=== PATIENT | male | born 1965 | race Caucasian/White ===

== ENCOUNTER 2016-12-26 11:08 | Emergency (ER) | payer MEDICARE, MEDICAID ==
[~2016-12-26] VITALS: Ht 170.2 cm; Wt 81.6 kg
[~2016-12-26 11:08] MED LIST: DEPAKOTE 500MG500 MG PO; LEVOTHYROXIN0.112 M1 PO; LISINOPRIL 5MG T5 MG PO; LORAZEPAM1 MG/TABLE PO; METOPROLOL25 MG PO; PRILOSEC20 MG PO; SERTRALINE 100100 MG PO; TRAZODONE 50MG50 MG PO; VITAMIN D1000 IU PO
--- NOTE | 2016-12-26 11:13 | Emergency Room Report ---
History of Present Illness Time Seen by [id number] Presenting Problem in Triage Pt arrived: Presenting Problem: Onset of symptoms date/time:/ or onset unknown for: Treatment Prior to Arrival: KENNEL MANAGER Provided by: Sepsis Risk Assessment: Temp: B/P: MAP: Pulse: Resp: Recent fever? Clinical Suspician of Infection? Mental Status: Sepsis Risk: Have you (or family members/close friends) recently traveled outside the [place]? If Yes, where/when: Have you had exposure to infectious disease within the past month? TB? Other? Specify: Comment The patient is brought in by ambulance as a TRAUMA ALERT. He says that he was on a brick wall and fell off. Estimated fall is 4-5 feet. He complains of RIGHT sided abdominal pain, LEFT wrist pain, and RIGHT ankle pain. RIGHT ankle was unstable upon EMS arrival and has been splinted. The patient denies loss of consciousness or neck pain. He feels anxious and thinks she might be short of breath due to that. He initially had some back pain, which he says is now gone. ALLERGIES Coded Allergies: No Known Allergies (01/14/16) Home Medications Reported Medications Lorazepam (Lorazepam 1MG) 1 MG PO QIDP PRN NERVES Divalproex Sodium (Depakote) 500 MG PO QHS Levothyroxine Sodium (Levothyroxine 0.112MG) 0.112 MG PO DAILY LISINOPRIL (Lisinopril) 5 MG PO DAILY Metoprolol Tartrate (Metoprolol) 25 MG PO BID Omeprazole (Prilosec 20MG) 20 MG PO DAILY Sertraline Hydrochloride (Sertraline 100MG) 100 MG PO BID TRAZODONE HCL (Trazodone HCl) 50 MG PO QHS CHOLECALCIFEROL (VITAMIN D3) (Vitamin D3) 5,000 IUNITS PO DAILY History Medical History General CAD? No Angina: No MS: No Hypertension? Yes Hyperlipidemia? No CHF? No DVT? No PE? No COPD? No Asthma? No Anemia? No GERD? No Gastric ulcers? No GI Bleed? No Hernia? No Thyroid Problems? No Hypothyroidism? No CVA? No Seizures? Yes Diabetes? No Insulin Dependent: No Insulin Pump: No Home FSBS? No Renal Insuffiency? No End Stage Renal Disease? No UTI? No Stones? No BPH? No GB Disease: No Nephritic Syndrome? No Asplenia? No Hepatitis? No Sickle Cell Disease? No Arthritis? No Migraines? No Cataracts? No Glaucoma? No MRSA? No HIV? No TB? No Anxiety? Yes Depression? Yes Cancer? No More? Yes Additional hx: OCD; CHRONIC ISSUES WITH BOWELS Surgical Hx Previous Surgery?N Family History Family Hx Diabetes Yes Hypertension Yes Hyperlipidemia No Cancer No TB No Social History Smoking Hx Packs/day N/A Review of Systems All Other Systems Reviewed and Negative Respiratory shortness of breath Cardiovascular denies chest pain Gastrointestinal abdominal pain, denies vomiting Musculoskeletal denies neck pain Physical Exam Vital Signs Vital Signs Date Time Temp Pulse Resp B/P Pulse O2 O2 Flow FiO2 Ox Delivery Rate 12/26 1140 98.6 77 16 130/88 98 2 12/26 1133 98.6 77 16 130/88 98 2 12/26 1126 98.6 75 16 136/84 98 2 12/26 1125 16 General Appearance cervical collar, spine board Eye Exam - bilateral eye normal exam, bilateral eye PERRL, bilateral eye EOMI Ear, Nose, Throat hearing grossly normal, normal ENT inspection Neck normal inspection, non-tender, supple, full range of motion Respiratory Status Yes: trachea midline, chest symmetrical, non tender chest. No: respiratory distress. Lung Sounds bilateral: normal breath sounds, lungs clear. Cardiovascular normal exam, regular rate/rhythm, no peripheral edema, no gallop, no JVD, no murmur, no rub, normal peripheral pulses Peripheral Pulses Pulses normal Yes Gastrointestinal normal bowel sounds, soft, no guarding, no rebound, tenderness (RIGHT upper quadrant) Back normal inspection, no CVA tenderness, no vertebral tenderness Extremities non-tender, normal range of motion, normal inspection, mild deformity LEFT ankle with edema and tenderness. Skin intact. Pulses, capillary refill, sensation intact. Foot warm., abrasion palm of LEFT hand. Tenderness of the volar aspect LEFT wrist without deformity or edema. Neurovascular status intact. Neurologic alert, senior accountant II-XII nml as tested, normal exam, oriented x 3 Mental status normal mood/affect Skin intact, normal color, warm/dry Medical Decision Making LABS/Meds/Orders Pt receiving controlled substance in ED? Yes Results/Orders Current Medication Orders Sig/Parminder Start time Last Medication Dose Route Stop Time Status Admin Morphine Sulfate 4 MG ONCE ONE 12/26 1130 DC 12/26 IV 12/26 1131 1125 Ondansetron HCl 4 MG ONCE ONE 12/26 1130 DC 12/26 IV 12/26 1131 1125 Ondansetron HCl 0 .STK-MED ONE 12/26 1119 DC .ROUTE Morphine Sulfate 0 .STK-MED ONE 12/26 1117 DC .ROUTE Orders Procedure Date/time Status PELVIS AP ONLY 12/26 111 Active CHEST-AP VIEW ONLY 12/26 111 Active XRAY/CT/US XRAY/CT/US XRAY chest, pelvis Comment X-ray interpreted by El Collado M.D.: Chest: No hemothorax or pneumothorax seen. Pelvis: No fracture or dislocation seen. Progress - 11:14 AM: Case discussed with medical referral coordinator [facility]. Patient accepted. Accepting physician is Dr. Christensen. Departure Departure Disposition DC/XFER from ER to [facility]. Hosp Clinical Impression Primary Impression: Abdominal contusion Qualifiers: Encounter type: initial encounter Qualified Code: S30.1XXA - Contusion of abdominal wall, initial encounter Secondary Impressions: Left wrist injury Qualifiers: Encounter type: initial encounter Qualified Code: S69.92XA - Unspecified injury of left wrist, hand and finger(s), initial encounter Right ankle injury Qualifiers: Encounter type: initial encounter Qualified Code: S99.911A - Unspecified injury of right ankle, initial encounter Condition STABLE ED Critical Care Critical Care No at 1157
[2016-12-26 11:40] VITALS: BP 130/88
--- NOTE | 2016-12-26 12:03 | RADIOLOGY REPORT PS360 ---
CHEST-AP VIEW ONLY HISTORY: TRAUMA; FALL ORDERING PHYSICIAN: El Collado MD PATIENT AGE: 51 years COMPARISON: None available FINDINGS: Limited study. Overlying artifact. Normal heart size. No obvious pneumothorax or mediastinal shift. Mediastinum is somewhat prominent but may be due to the portable supine technique. IMPRESSION: Grossly negative
--- NOTE | 2016-12-26 12:04 | RADIOLOGY REPORT PS360 ---
PELVIS AP ONLY HISTORY: Fall with injury and pain TRAUMA; FALL ORDERING PHYSICIAN: El Collado MD PATIENT AGE: 51 years COMPARISON: None FINDINGS: Very limited exam. No gross fracture or dislocation. Extensive overlying artifact with underpenetration. IMPRESSION: Grossly negative
== END 2016-12-26 12:23 | disposition short-term general hospital (02) ==
LOC: ER 11:08
DX: S30.1XXA Contusion of abdominal wall, initial encounter (principal); S69.92XA Unspecified injury of left wrist, hand and finger(s), initial encounter; S99.911A Unspecified injury of right ankle, initial encounter; I10 Essential (primary) hypertension; F41.8 Other specified anxiety disorders; W17.89XA Other fall from one level to another, initial encounter; Y92.199 Unspecified place in other specified residential institution as the place of occurrence of the external cause
CPT/HCPCS: J2405